=== PATIENT | female | born 1975 | race Caucasian/White ===

== ENCOUNTER 2020-10-07 03:43 | Inpatient (IN) | payer OTHER ==
[2020-10-07 04:32] VITALS: BMI 25.8
[2020-10-07] MEDS ORDERED: hydrALAZINE 20 MG/ML VIAL SLOW IVP PRN (04:53)
[2020-10-07] MEDS ORDERED: Acetaminophen 500 MG TAB PO PRN (04:53)
[2020-10-07] MEDS ORDERED: Promethazine HCl 25 MG/ML VIAL IM PRN (04:53)
[2020-10-07] MEDS ORDERED: NS / Oxytocin 40 units/1000ml 1,000 ML IV PRN (04:53)
[2020-10-07] MEDS ORDERED: HYDROcodone/Acetaminophen 5/325 mg Tablet PO PRN ×2 (04:53)
[2020-10-07] MEDS ORDERED: Misoprostol 200 MCG TAB PR PRN (04:53)
[2020-10-07] MEDS ORDERED: Lidocaine 1% (PF) 30 ML VIAL SC PRN (04:53)
[2020-10-07] MEDS ORDERED: Carboprost 250 MCG/ML AMP IM PRN (04:53)
[2020-10-07] MEDS ORDERED: Diphenoxylate HCl/Atropine Tablet PO PRN ×2 (04:53)
[2020-10-07] MEDS ORDERED: Ondansetron PF 4 MG/2 ML Vial IVP PRN (04:53)
[2020-10-07] MEDS ORDERED: Methylergonovine 0.2 MG/ML VIAL IM PRN (04:53)
[2020-10-07] MEDS ORDERED: Butorphanol Tartrate 1 MG/ML VIAL SLOW IVP PRN (04:53)
[2020-10-07] MEDS ORDERED: Ibuprofen 800 MG TAB PO PRN (04:53)
[2020-10-07] MEDS ORDERED: Penicillin G Potassium 5 MILL.UNITS in Sodium Chloride 0.9% 100 ML IVPB SCH (05:00)
[2020-10-07] MEDS ORDERED: NS w/ Oxytocin 10 units 500 ML IV SCH ×2 (05:00→08:30)
[2020-10-07] MEDS: Lactated Ringer's 1,000 ML IV SCH ×2 (05:32→13:57)
[2020-10-07 06:17] LABS: Hemoglobin 13.7 g/dL (12.0-16.0); Mean Corpuscular HGB CONC 32.9 g/dL (32.0-36.0); Mean Corpuscular Hemoglobin 32.1 pg (27.0-31.0); Mean Corpuscular Volume 97.5 fL (78.0-98.0); Mean Platelet Volume 8.8 fL (7.4-10.4); Platelet Count 224 thou/uL (130-400); Red Blood Cell (RBC) Count 4.25 mill/uL (4.20-5.40); White Blood Cell (WBC) Count 11.6 thou/uL (4.8-10.8)
[2020-10-07 06:59] LABS: Syphilis Antibody Nonreactive (Nonreactive); Syphilis Antibody Index 0.02 S/CO (<1.00 Non-Reactive)
[2020-10-07 07:00] LABS: HBSAg Index 0.18 S/CO (0-0.99); Hep B Surf Ag Non-Reactive S/CO (NonReactive)
[2020-10-07] MEDS: Penicillin G 2.5 MILL.units 2.5 MILL.UNITS in Premix Bag 1 BAG IVPB SCH ×2 (10:27→11:24)
[2020-10-07 13:05] LABS: SARS-CoV-2 MS2 Positive; SARS-CoV-2 N Gene Negative; SARS-CoV-2 S Gene Negative; SARS-CoV-2 by NAA Not Detected (NotDetected); SARS-CoV-2 orf1ab Negative
[2020-10-07] MEDS ORDERED: NS / Oxytocin 40 units/1000ml 1,000 ML IV SCH (17:05)
--- NOTE | 2020-10-07 17:24 | PDOC.OPDEL ---
OB Operative/Delivery Note Delivery Dr/Surgeon: Jose BASS Pre-Delivery Diagnosis: active labor Procedure/Post Delivery Dx: spontaneous vaginal delivery Weeks gestation: 39 Anesthesia: other (pudendal and local) - Findings A Sex: female (apgars and wt pending) - Additional Findings/Plan Placenta delivered: spontaneous Repaired Obstetrical Laceration: 2nd degree Estimated blood loss: 250 qbl Post delivery plan: routine recovery
[2020-10-08] MEDS ORDERED: hydrALAZINE 20 MG/ML VIAL SLOW IVP PRN (00:05)
[2020-10-08] MEDS ORDERED: Benzocaine-Menthol 82.5 ML CAN TOP PRN (00:05)
[2020-10-08] MEDS ORDERED: Lanolin Ointment 7 GM TUBE TOP PRN (00:05)
[2020-10-08] MEDS ORDERED: NS / Oxytocin 40 units/1000ml 1,000 ML IV SCH (00:05)
[2020-10-08] MEDS ORDERED: diphenhydrAMINE 25 MG CAP PO PRN (00:05)
[2020-10-08] MEDS ORDERED: Ondansetron PF 4 MG/2 ML Vial IVP PRN (00:05)
[2020-10-08] MEDS ORDERED: Milk Of Magnesia 30 ML UDCUP PO PRN (00:05)
[2020-10-08] MEDS ORDERED: Bisacodyl 10 MG SUPP PR PRN (00:05)
[2020-10-08] MEDS: Ibuprofen 800 MG TAB PO SCH ×3 (00:23→14:01)
[2020-10-08] MEDS ORDERED: Sodium Chloride 0.9% 10 ML ONE (01:18)
[2020-10-08] MEDS: Ferrous Sulfate 325 MG TAB PO SCH ×3 (07:57→14:29)
[2020-10-08 08:07] VITALS: TEMP 98.5
[2020-10-08] MEDS: Penicillin G 2.5 MILL.units 2.5 MILL.UNITS in Premix Bag 1 BAG IVPB SCH (08:26)
[2020-10-08] MEDS: Prenatal Vitamin 1 TAB PO SCH ×2 (08:49→08:51)
[2020-10-08] MEDS ORDERED: Docusate Calcium (SURFAK) 240 MG CAP PO SCH (09:00)
[2020-10-08] MEDS ORDERED: Adacel (T-DAP) 0.5 ML SYRINGE IM ONE (09:00)
[2020-10-08 12:30] VITALS: BP 97/55
== END 2020-10-08 18:37 | disposition home or self-care (01) | DRG 807 ==
LOC: L&D/OP 03:43 → L&D 08:41 → 3SE 18:13
PROVIDERS: ADMIT Obstetrics & Gynecology; ATTEND Obstetrics & Gynecology
PROC: 10E0XZZ Delivery of Products of Conception, External Approach (ICD-10-PCS; principal; 2020-10-07)
PROC: 0KQM0ZZ Repair Perineum Muscle, Open Approach (ICD-10-PCS; 2020-10-07)
DX: O99.824 Streptococcus B carrier state complicating childbirth (principal); Z37.0 Single live birth; Z3A.39 39 weeks gestation of pregnancy; Z20.828 Contact with and (suspected) exposure to other viral communicable diseases; O70.1 Second degree perineal laceration during delivery
CPT/HCPCS: 36415; 51702; 85027; 86780; 86850; 86900; 86901; 87340; 87635; 99285; J2540; J2590; J3490; U0003